=== PATIENT | male | born 1955 | race Caucasian/White ===

== ENCOUNTER 2024-03-23 06:50 | Day surgery (SDC) | payer MEDICARE, MEDICAID, SELFPAY ==
[2024-03-22 08:28] VITALS: BMI 31.6
--- NOTE | 2024-03-22 09:31 | SUR.PREOP ---
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
[2024-03-22 09:43] LABS: Basophils % (Auto) 1 % (0-2.5); Eosinophils # (Auto) 0.2 Thou/mm3 (0.0-0.5); Eosinophils % (Auto) 3 % (0-10); Hematocrit 38.7 % (41.0-53.0); Hemoglobin 12.9 g/dL (13.5-16.0); Immature Granulocytes % (Auto) 0 % (0-0); Immature Granulocytes Auto 0.01 Thou/mm3 (0.00-0.00); Lymphocytes # (Auto) 0.8 Thou/mm3 (1.0-4.8); Lymphocytes % (Auto) 13 % (10-50); Mean Corpuscular HGB Conc 33.3 g/dl (31.0-37.0); Mean Corpuscular Hemoglobin 31.3 pg (25.0-35.0); Mean Corpuscular Volume 94 fL (80-100); Monocytes # (Auto) 0.7 Thou/mm3 (0.0-0.8); Monocytes % (Auto) 12 % (0-12); Neutrophils # (Auto) 4.5 Thou/mm3 (1.8-7.7); Neutrophils % (Auto) 72 % (37-80); Nucleated Red Blood Cell % 0 /100 WBC (0); Platelet Count 255 Thou/mm3 (140-440); RDW Standard Deviation 45.1 fL (35.1-43.9); Red Blood Count 4.12 Miln/mm3 (4.50-5.90); White Blood Count 6.2 Thou/mm3 (3.8-10.6)
[2024-03-22 10:07] LABS: INR 1.1 (0.9-1.3); Partial Thromboplastin Time 30.5 Seconds (22.0-36.0); Prothrombin Time 12.3 Seconds (9.0-12.2)
[2024-03-22 10:12] LABS: Alanine Aminotransferase 40 U/L (10-49); Albumin/Globulin Ratio 2.2 (1.2-2.2); Alkaline Phosphatase 150 U/L (46-116); Anion Gap 7 (7-16); Aspartate Amino Transferase 14 U/L (0-34); BUN/Creatinine Ratio 14 Ratio (12-20); Bilirubin,Total 0.6 mg/dL (0.3-1.2); Blood Urea Nitrogen 14 mg/dL (9-23); Calcium 9.9 mg/dL (8.3-10.6); Calcium (Corrected) 9.9 mg/dL (8.5-10.1); Carbon Dioxide 26.6 mMol/L (20.0-31.0); Chloride 104 mMol/L (98-107); Estimated Creatinine Clearance 82.5 mL/min (>60); Globulin 2.3 gm/dL (2.3-3.5); Glucose 98 mg/dL (74-106); Osmolality,Calculated 276 (275-295); Potassium 4.3 mMol/L (3.4-5.1); Sodium 138 mMol/L (136-145); Total Protein 7.3 gm/dL (5.7-8.2); eGFR > 60 See Note
--- NOTE | 2024-03-22 14:11 | SUR.PREOP ---
Cardiac records reviewed with Dr Baker.
[2024-03-23] VITALS (8 sets, daily range): BP systolic 132–177; BP diastolic 72–99; PULSE 63–91; RESP 14–18; TEMP 36.4–36.6; O2SAT 93–97; BMI 31.1
--- NOTE | 2024-03-23 09:07 | SUR.PHASEI ---
pt arrived to PACU via gurney awake, alert, able to follow commands, breathing unlabored, dressing to bilateral lower extremities clean, dry, and intact, report from Kyle LOPEZ and Dr Baker
--- NOTE | 2024-03-23 09:09 | PD.SUROPNT ---
Date of Procedure 03/23/24 Pre Op Diagnosis Severe venous insufficiency bilateral Post Op Diagnosis Same Procedure Bilateral leg greater saphenous vein radiofrequency ablation Findings Enlarged bilateral saphenous veins Procedure Description Patient was brought to the operating room placed on operative table supine position. Bilateral lower extremities prepped and draped in usual sterile fashion after the patient received general anesthesia and prophylactic antibiotics. We performed timeout for team members present. We then began accessing the left greater saphenous vein at the level of the knee with microneedle and wire. Ultrasound was used to assess vessel patency confirmed needle entry. We confirmed wire position with ultrasound and upsized to a 7 [place] sheath. We then placed the ablation catheter up to the saphenofemoral junction and retracted 3 cm inferiorly. We then injected the entire length of the vein with tumescent solution. We then ablated the vein in 7 cm segments per cash analyst recommendations ablating the proximal segment twice. Once completed we then removed the sheath and catheter and pressure was held at the access site until hemostasis was achieved. We repeated the exact same steps in the right lower extremity once completed bilaterally we then approximated both access sites with Steri-Strips followed with dressings with ABDs Curlex and Skinny wrap bilaterally and this concluded the procedure. Patient procedure well. No complications no implants no specimens patient was transferred recovery stable condition. Anesthesia GETA Pathology / specimen None Estimated Blood Loss 2 Condition Stable Disposition same day Surgeon Waldemar Arnold MD Surgical Staff Operation Date: 03/23/24 09:00 Case Staff Anesthesiologist: Chandan Baker
--- NOTE | 2024-03-23 10:21 | SUR.PHASEII ---
pt awake, alert, able to follow commands, breathing unlabored, dressing to bilateral lower extremities clean, dry, and intact, pt able to ambulate to bathroom with steady gait, discharge instructions given with son present, all questions answered, pt discharged via wheelchair with all belongings and copies of discharge paperwork.
== END 2024-03-23 10:21 | disposition home or self-care (01) ==
PROVIDERS: Anesthesiology; PCP Physician Assistant; Referring Provider Student in an Organized Health Care Education/Training Program; Visit Provider Student in an Organized Health Care Education/Training Program
PROC: (CPT 36475; principal; 2024-03-23 08:45)
DX: I87.2 Venous insufficiency (chronic) (peripheral) (principal); I83.813 Varicose veins of bilateral lower extremities with pain
CPT/HCPCS: 36475; 36415; 80053; 85025; 85610; 85730; A4217; A4649; C1888; C1894; J0690; J1100; J2371; J2704; J2765; J3010; J7050